=== PATIENT | female | born 1960 | race Caucasian/White ===

== ENCOUNTER 2020-09-14 03:45 | Observation (INO) ==
[2020-09-14] MEDS ORDERED: Ondansetron 4 MG/2 ML VIAL IVP ONE (04:09)
[2020-09-14] MEDS ORDERED: 0.9 % Sodium Chloride 1,000 ML IVC ONE (04:10)
[2020-09-14] MEDS ORDERED: Isovue-370 500 ML BOTTLE IVP ONE (04:10)
[2020-09-14 04:55] LABS: Basophils # 0.2 K/mcL (0.0-0.2); Basophils % 0.8 %; Eosinophils % 0.1 %; Hematocrit 47.2 % (35.3-44.9); Hemoglobin 15.8 g/dL (11.5-15.4); Immature Granulocytes % 0.9 % (0-4); Lymphocytes # 2.2 K/mcL (0.6-4.6); Mean Corpuscular HGB Conc 33.5 g/dL (31.6-35.5); Mean Corpuscular Hemoglobin 32.2 pg (28.0-33.3); Mean Corpuscular Volume 96.3 fL (83.0-100.0); Mean Platelet Volume 9.7 fL (9.4-12.4); Monocytes # 0.8 K/mcL (0.0-1.3); Monocytes % 3.4 %; Neutrophils # 18.8 K/mcL (1.6-8.9); Platelet Count 371 K/mcL (140-400); Segmented Neutrophils % 84.8 %; White Blood Count 22.2 K/mcL (4.3-11.1)
[2020-09-14 04:56] LABS: Bacteria,Urine Few per hpf (None-Few); Bilirubin,Urine Negative (Negative); Blood,Urine Negative (Negative); Clarity,Urine Clear (Clear); Color,Urine Light-Yellow (Yellow); Glucose,Urine (UA) 200 mg/dL (Normal); Ketones,Urine Negative (Negative); Leukocyte Esterase,Urine Negative (Negative); Mucus,Urine Few per lpf (None-Few); Nitrite,Urine Negative (Negative); PH,Urine 8.5 pH Units (5.0-8.0); Protein,Urine 30 mg/dL (Neg-Trace); RBC,Urine 0-3 per hpf (0-3); Specific Gravity,Urine 1.014 (1.010-1.025); Squamous Epithelial Cell,Urine Few per hpf (None-Few); Urobilinogen,Urine Normal (Normal); WBC,Urine 0-3 per hpf (0-3)
[2020-09-14 05:16] LABS: Alanine Aminotransferase 20 Units/L (7-52); Albumin 4.5 g/dL (3.5-5.7); Albumin/Globulin Ratio 1.3 (1.1-2.2); Alkaline Phosphatase 116 Units/L (34-104); Aspartate Amino Transferase 26 Units/L (13-39); BUN/Creatinine Ratio 15 (6-26); Bilirubin,Total 0.6 mg/dL (0.3-1.0); Blood Urea Nitrogen 10 mg/dL (8-23); Calcium 10.2 mg/dL (8.6-10.3); Carbon Dioxide 28 mEq/L (23-29); Chloride 97 mEq/L (98-107); Globulin 3.6 g/dL (2.4-3.5); Glucose 300 mg/dL (70-105); Lipase 12 Units/L (11-82); Osmolality,Calculated 296 (280-300); Potassium 3.5 mEq/L (3.5-5.1); Sodium 138 mEq/L (136-145); Total Protein 8.1 g/dL (6.4-8.9); Troponin I < 0.03 ng/mL (< 0.04); eGFR For African Americans > 60 (> 60); eGFR For Non-African Americans > 60 (> 60)
[2020-09-14] MEDS ORDERED: Morphine Sulfate 2 MG/ML SYRINGE IVP ONE (06:06)
[2020-09-14] MEDS ORDERED: Insulin Regular, Human 100 UNIT/ML SUBQ ONE (06:07)
[2020-09-14] MEDS ORDERED: *HR* Metoprolol 5 MG/5 ML VIAL IVP PRN (07:22)
[2020-09-14] MEDS ORDERED: *HR* Promethazine 25 MG/ML VIAL IM PRN (07:22)
[2020-09-14] MEDS ORDERED: D5% in Water 1,000 ML IVC PRN (07:26)
[2020-09-14] MEDS ORDERED: *HR* Dextrose 50 % in Water (Vial) 50 ML VIAL IVP PRN (07:26)
[2020-09-14] MEDS ORDERED: Dextrose Gel 15 GM/37.5 ML TUBE PO PRN ×2 (07:26)
[2020-09-14 08:34] LABS: INR 1.1; Prothrombin Time 12.6 Seconds (9.4-12.1)
[2020-09-14] MEDS ORDERED: Ipratropium/Albuterol Neb 3 ML IH PRN (08:36)
[2020-09-14] MEDS: Pantoprazole 40 MG VIAL IVP SCH (08:41)
[2020-09-14] MEDS: 0.9 % Sodium Chloride 1,000 ML IVC SCH ×2 (08:42→22:15)
[2020-09-14 08:51] LABS: Estimated Average Glucose 203 mg/dl; Hemoglobin A1C 8.7 %
[2020-09-14] MEDS: Insulin LISPRO 300 UNITS/3 ML VIAL SUBQ SCH ×2 (12:06→18:18)
[2020-09-14] MEDS: Ondansetron 4 MG/2 ML VIAL IVP PRN (18:44)
[2020-09-14 23:39] LABS: Adenovirus Not Detected (Not Detect); Bordetella Pertussis Not Detected (Not Detect); Chlamydophila pneumoniae Not Detected (Not Detect); Coronavirus 229E Not Detected (Not Detect); Coronavirus HKU1 Not Detected (Not Detect); Coronavirus NL63 Not Detected (Not Detect); Coronavirus OC43 Not Detected (Not Detect); Human Metapneumovirus Not Detected (Not Detect); Human Rhinovirus/Enterovirus Not Detected (Not Detect); Influenza A Subtype 2009 H1 Not Detected (Not Detect); Influenza B Not Detected (Not Detect); Mycoplasma pneumoniae Not Detected (Not Detect); Parainfluenza Virus 1 Not Detected (Not Detect); Parainfluenza Virus 2 Not Detected (Not Detect); Parainfluenza Virus 3 Not Detected (Not Detect); Parainfluenza Virus 4 Not Detected (Not Detect); Respiratory Syncytial Virus Not Detected (Not Detect); SARS-CoV-2 Not Detected (Not Detect)
[2020-09-15] MEDS: Insulin LISPRO 300 UNITS/3 ML VIAL SUBQ SCH ×4 (00:17→17:05)
[2020-09-15] MEDS: Ondansetron 4 MG/2 ML VIAL IVP PRN ×2 (00:19→06:42)
[2020-09-15 03:01] LABS: Basophils # 0.1 K/mcL (0.0-0.2); Basophils % 0.6 %; Eosinophils % 0.2 %; Hematocrit 45.1 % (35.3-44.9); Hemoglobin 14.7 g/dL (11.5-15.4); Immature Granulocytes % 0.6 % (0-4); Lymphocytes # 2.4 K/mcL (0.6-4.6); Lymphocytes % 14.1 %; Mean Corpuscular HGB Conc 32.6 g/dL (31.6-35.5); Mean Corpuscular Hemoglobin 32.4 pg (28.0-33.3); Mean Corpuscular Volume 99.3 fL (83.0-100.0); Mean Platelet Volume 9.6 fL (9.4-12.4); Monocytes # 1.4 K/mcL (0.0-1.3); Monocytes % 8.4 %; Neutrophils # 12.7 K/mcL (1.6-8.9); Nucleated Red Blood Cells 0.1 /100 WBC (0); Platelet Count 310 K/mcL (140-400); Red Blood Count 4.54 M/mcL (3.82-4.97); Red Cell Distribution Width 12.3 % (11.5-14.5); Segmented Neutrophils % 76.1 %; White Blood Count 16.7 K/mcL (4.3-11.1)
[2020-09-15 03:17] LABS: BUN/Creatinine Ratio 15 (6-26); Blood Urea Nitrogen 9 mg/dL (8-23); Calcium 8.8 mg/dL (8.6-10.3); Carbon Dioxide 32 mEq/L (23-29); Chloride 103 mEq/L (98-107); Glucose 181 mg/dL (70-105); Osmolality,Calculated 297 (280-300); Potassium 3.6 mEq/L (3.5-5.1); Sodium 142 mEq/L (136-145); eGFR For African Americans > 60 (> 60); eGFR For Non-African Americans > 60 (> 60)
[2020-09-15] MEDS: 0.9 % Sodium Chloride 1,000 ML IVC SCH (07:56)
[2020-09-15] MEDS: Pantoprazole 40 MG VIAL IVP SCH (07:56)
[2020-09-15] MEDS: Budesonide/Formoterol 80/4.5 1 PUFF INH IH SCH ×2 (20:32→20:51)
[2020-09-15] MEDS: Metoprolol 100 MG TABLET PO SCH (20:58)
[2020-09-15] MEDS ORDERED: rOPINIRole 1 MG TABLET PO SCH (21:00)
[2020-09-16] MEDS: Insulin LISPRO 300 UNITS/3 ML VIAL SUBQ SCH (01:51)
[2020-09-16 04:26] LABS: Hematocrit 42.6 % (35.3-44.9); Hemoglobin 13.5 g/dL (11.5-15.4); Mean Corpuscular HGB Conc 31.7 g/dL (31.6-35.5); Mean Corpuscular Hemoglobin 32.7 pg (28.0-33.3); Mean Corpuscular Volume 103.1 fL (83.0-100.0); Mean Platelet Volume 9.9 fL (9.4-12.4); Platelet Count 256 K/mcL (140-400); Red Blood Count 4.13 M/mcL (3.82-4.97); Red Cell Distribution Width 12.5 % (11.5-14.5); White Blood Count 17.1 K/mcL (4.3-11.1)
[2020-09-16 04:49] LABS: BUN/Creatinine Ratio 16 (6-26); Blood Urea Nitrogen 9 mg/dL (8-23); Calcium 8.3 mg/dL (8.6-10.3); Carbon Dioxide 32 mEq/L (23-29); Chloride 102 mEq/L (98-107); Glucose 166 mg/dL (70-105); Magnesium 1.9 mg/dL (1.6-2.6); Osmolality,Calculated 294 (280-300); Potassium 3.3 mEq/L (3.5-5.1); Sodium 141 mEq/L (136-145); eGFR For African Americans > 60 (> 60); eGFR For Non-African Americans > 60 (> 60)
[2020-09-16] MEDS: Metoprolol 100 MG TABLET PO SCH (08:53)
[2020-09-16] MEDS: Pantoprazole 40 MG VIAL IVP SCH (08:54)
[2020-09-16] MEDS ORDERED: amLODIPine 5 MG TABLET PO SCH (09:00)
[2020-09-16] MEDS ORDERED: PARoxetine 30 MG TABLET PO SCH (09:00)
[2020-09-16] MEDS: Budesonide/Formoterol 80/4.5 1 PUFF INH IH SCH (10:53)
[2020-09-16 10:54] VITALS: BP 131/57
== END 2020-09-16 12:50 | disposition home or self-care (01) ==
LOC: EMEROOARM 03:45 → CDU 03:45 → SUATTDRO 06:50 → CDU 07:54
PROVIDERS: ADMIT Family Medicine; ATTEND Internal Medicine